=== PATIENT | female | born 1970 | race Caucasian/White ===

== ENCOUNTER → 2017-12-25 09:42 | Outpatient (CLI) | payer BC, SELFPAY ==
--- NOTE | 2017-12-25 | XR_ITS ---
XR foot wt bearing LT 2V HISTORY: Left foot pain ORDERING PHYSICIAN: Bridget Jimenez DPM PATIENT AGE: 47 years COMPARISON: None FINDINGS: Weightbearing views are performed. Mild hallux valgus with the first metatarsophalangeal angle of 21 degrees with hypertrophic change at the distal first metatarsal and mild osteoarthritic change of the first MTP joint and mild prominence of the soft tissues medial to the head of the first metatarsal. No other significant anomalies. 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
--- NOTE | 2017-12-25 | XR_ITS ---
XR foot wt bearing RT 2V HISTORY: Right foot pain ORDERING PHYSICIAN: Bridget Jimenez DPM PATIENT AGE: 47 years COMPARISON: None FINDINGS: Weightbearing views are performed. Mild hallux valgus first metatarsophalangeal joint with a first MTP angle of 21 degrees. On mild hypertrophy of the distal aspect of the first metatarsal. No other significant anomalies. IMPRESSION: Mild hallux valgus with mild bunion formation
== END ==
PROVIDERS: PCP Physician Assistant; Visit Provider Podiatrist
DX: M79.671 Pain in right foot (principal); M79.672 Pain in left foot
CPT/HCPCS: 73620

== ENCOUNTER → 2018-07-03 17:29 | Outpatient (CLI) | payer BC, SELFPAY | PROVIDERS: Visit Provider Nurse Practitioner Family | DX: Z79.899 Other long term (current) drug therapy (principal) ==

== ENCOUNTER → 2018-11-05 08:19 | Outpatient (POV) | payer BC, SELFPAY | PROVIDERS: Visit Provider Dermatology | DX: Z00.00 Encounter for general adult medical examination without abnormal findings (principal) ==

== ENCOUNTER → 2019-04-15 13:28 | Outpatient (POV) | payer BC, SELFPAY | PROVIDERS: Visit Provider Dermatology | DX: Z00.00 Encounter for general adult medical examination without abnormal findings (principal) ==

== ENCOUNTER → 2019-04-15 15:07 | Outpatient (CLI) | payer BC, SELFPAY | PROVIDERS: Visit Provider Physician Assistant | DX: N39.0 Urinary tract infection, site not specified (principal) | CPT/HCPCS: 87086; 87088; 87186 ==

== ENCOUNTER 2020-06-03 13:07 | Emergency (ER) | payer BC, SELFPAY ==
--- NOTE | 2020-06-03 13:18 | HMH.EDUTC ---
[facility] [place] Dis[place] Clinical Impression: Exposure to COVID-19 virus, Viral syndrome Disposition: Home, Self-Care Condition on Discharge: Good Instructions: DI for Viral Syndrome, Preventing the Spread of Coronavirus Discharge Instructions Additional Instructions: Follow the instuctions on the printed sheet that we gave you regarding preventing the spread of COVID-19. Take the medications as prescribed. Follow up with your regular doctor. GO TO THE ER FOR ANY WORSENING SYMPTOMS OR CONCERNS, ESPECIALLY ANY TROUBLE BREATHING Prescriptions: Ibuprofen [Ibuprofen 800mg Tablet] 800 mg PO Q8HP PRN #30 tab PRN Reason: Moderate Pain Transmission Status: Received by [facility] Ondansetron [Zofran 4mg ODT] 4 mg PO Q8HP PRN #20 tab.rapdis PRN Reason: Nausea Transmission Status: Received by [facility] Benzonatate [Tessalon Perle 100mg Cap] 100 mg PO TIDP PRN #30 cap PRN Reason: Cough Transmission Status: Received by [facility] Azithromycin [Z-Andrea 250mg Tab*] 250 mg PO UD DOSE PK #6 tab Transmission Status: Received by [facility] Referrals: Frida Angulo PA [Primary Care Provider] - Time of Disposition: 13:43 Medical Decision Making - Medical Records Medical records reviewed: No: I reviewed the patient's medical records. - [place] Inquiry Pt receiving controlled substance: No Vital Signs: 06/03/20 13:22 06/03/20 13:45 Temperature 98.9 F 98.9 F Temperature Source Oral Pulse Rate 132 H Pulse Rate [Right Brachial] 132 H Respiratory Rate 22 22 Blood Pressure 154/95 H Blood Pressure [Right Arm] 154/95 H Blood Pressure Mean [Right Arm] 114 Blood Pressure Source [Right Arm] Automatic Cuff Blood Pressure Position [Right Arm] Sitting 02 Sat by Pulse Oximetry 100 Oxygen Delivery Method Room Air Orders (Tests/Meds): ORDERS Category Date Time Status SARS-CoV-2, SHIVAM Stat Lab 06/03/20 13:32 Received [facility] [place] HPI - General Stated complaint: wants covid test Time Seen by Provider: 06/03/20 13:19 - History of Present Illness Provider Complaint: She states that her was diagnosed with COVID-19 about 2 weeks ago. She states that she has a mild cough and she has lost her sense of taste. - Related Data Home Medications Medication Instructions Recorded Confirmed Dextroamphetamine/Amphetamine 20 mg PO DAILY 06/03/20 06/03/20 [Adderall 20 mg Tablet] Levothyroxine Sodium 75 mcg PO DAILY 06/03/20 06/03/20 [Levothyroxine 75mcg (0.075mg) Tab] Previous Rx's Medication Instructions Recorded Azithromycin [Z-Andrea 250mg Tab*] 250 mg PO UD DOSE PK #6 tab 06/03/20 Benzonatate [Tessalon Perle 100mg 100 mg PO TIDP PRN #30 cap 06/03/20 Cap] Ibuprofen [Ibuprofen 800mg 800 mg PO Q8HP PRN #30 tab 06/03/20 Tablet] Ondansetron [Zofran 4mg ODT] 4 mg PO Q8HP PRN #20 tab.rapdis 06/03/20 Allergies Allergy/AdvReac Type Severity Reaction Status Date / Time No Known Allergies Allergy Verified 01/06/20 09:13 [facility] History - Hepatitis A Screen Attestation statement:: This patient has been screened for Hepatitis A risk factors. I have reviewed the patient's past medical history: Yes Medical History: Reports:: Anxiety Denies:: Aneurysm, Arrhythmia, Asthma, Atrial Fibrillation, Cancer, Chronic Obstructive Pulmonary Disease (COPD), Cerebrovascular Accident, Diabetes Mellitus Type 1, Diabetes Mellitus Type 2, Gastroesophageal Reflux Disease(GERD), Hiatal Hernia, Hyperlipidemia, Hypertension, Kidney Stones, Myocardial Infarction Other Medical History: Reports: Hypothyroidism, Thyroid Disease. Denies: Arthritis, Sinus Problems Comment: ADHD Other Surgeries: Yes: Colonoscopy, Hysterectomy-Total, Hysterectomy-Partial Amputation: No Fractures: No - Social History Smoking Status: Never smoker Alcohol Intake: never Alcohol Intake Frequency:: 0-2 drinks per day Substance Use Type: denies use Occupational Status: employed Housing:
[2020-06-03 13:22] VITALS: BP 154/95; PULSE 132; RESP 22; TEMP 37.2; O2SAT 100; BMI 25.8
[2020-06-03 13:45] VITALS: BP 154/95; PULSE 132; RESP 22; TEMP 37.2; O2SAT 100
[2020-06-04 13:47] LABS: Covid-19 Nasal PCR Sendout Lex POSITIVE
== END 2020-06-03 13:48 | disposition home or self-care (01) ==
PROVIDERS: Emergency Provider Nurse Practitioner Family; PCP Physician Assistant
DX: Z20.828 Contact with and (suspected) exposure to other viral communicable diseases (principal); B34.9 Viral infection, unspecified; E03.9 Hypothyroidism, unspecified; F41.9 Anxiety disorder, unspecified; F90.9 Attention-deficit hyperactivity disorder, unspecified type; Z79.899 Other long term (current) drug therapy
CPT/HCPCS: 99201; U0004

== ENCOUNTER 2020-06-17 13:51 | Emergency (ER) | payer BC, SELFPAY ==
--- NOTE | 2020-06-17 14:26 | HMH.EDUTC ---
[facility] [place] Clinical Impression: Exposure to COVID-19 virus, COVID-19 Disposition: Home, Self-Care Condition on Discharge: Good Instructions: Preventing the Spread of Coronavirus Discharge Instructions Additional Instructions: FOLLOW THE DIRECTIONS ON THE COVID-19 HAND OUT THAT WE GAVE YOU REGARDING SELF-ISOLATION UNTIL YOU KNOW YOUR COVID-19 RESULTS Referrals: Frida Angulo PA [Primary Care Provider] - Time of Disposition: 14:53 Medical Decision Making - Medical Records Medical records reviewed: No: I reviewed the patient's medical records. - [place] Inquiry Pt receiving controlled substance: No Vital Signs: 06/17/20 14:40 06/17/20 15:01 Temperature 98.2 F 98.5 F Temperature Source Oral Oral Pulse Rate 87 Pulse Rate [Right] 78 Respiratory Rate 16 16 Blood Pressure 124/70 Blood Pressure Source Automatic Cuff Blood Pressure Position Sitting 02 Sat by Pulse Oximetry 98 Oxygen Delivery Method Room Air Room Air Orders (Tests/Meds): ORDERS Category Date Time Status SARS-CoV-2, SHIVAM Stat Lab 06/17/20 14:45 Re[place] [facility] [place] - General Stated complaint: covid re test Time Seen by Provider: 06/17/20 14:26 - History of Present Illness Provider Complaint: She is here to have a covid test. She tested posive about 14 days ago. She denies any fever or chills or other symptoms. - Related Data Home Medications Medication Instructions Recorded Confirmed Dextroamphetamine/Amphetamine 20 mg PO DAILY 06/03/20 06/03/20 [Adderall 20 mg Tablet] Levothyroxine Sodium 75 mcg PO DAILY 06/03/20 06/03/20 [Levothyroxine 75mcg (0.075mg) Tab] Previous Rx's Medication Instructions Recorded Azithromycin [Z-Andrea 250mg Tab*] 250 mg PO UD DOSE PK #6 tab 06/03/20 Benzonatate [Tessalon Perle 100mg 100 mg PO TIDP PRN #30 cap 06/03/20 Cap] Ibuprofen [Ibuprofen 800mg 800 mg PO Q8HP PRN #30 tab 06/03/20 Tablet] Ondansetron [Zofran 4mg ODT] 4 mg PO Q8HP PRN #20 tab.rapdis 06/03/20 Allergies Allergy/AdvReac Type Severity Reaction Status Date / Time No Known Allergies Allergy Verified 06/17/20 14:38 [facility] History - Hepatitis A Screen Attestation statement:: This patient has been screened for Hepatitis A risk factors. I have reviewed the patient's past medical history: Yes Medical History: Reports:: Anxiety Denies:: Aneurysm, Arrhythmia, Asthma, Atrial Fibrillation, Cancer, Chronic Obstructive Pulmonary Disease (COPD), Cerebrovascular Accident, Diabetes Mellitus Type 1, Diabetes Mellitus Type 2, Gastroesophageal Reflux Disease(GERD), Hiatal Hernia, Hyperlipidemia, Hypertension, Kidney Stones, Myocardial Infarction Other Medical History: Reports: Hypothyroidism, Thyroid Disease. Denies: Arthritis, Sinus Problems Comment: ADHD Other Surgeries: Yes: Colonoscopy, Hysterectomy-Total, Hysterectomy-Partial Amputation: No Fractures: No - Social History Smoking Status: Never smoker Alcohol Intake: never Alcohol Intake Frequency:: 0-2 drinks per day Substance Use Type: denies use Occupational Status: other Housing: house Household Members: family, children, spouse - Psychiatric History Pschychiatric History:: Reports:: Anxiety, Attention Deficit Disorder Family Hx:: Cancer ROS Obtained: No All systems reviewed & no additional complaints - Constitutional Constitutional: Denies chills, Denies fever(s) - Eyes Eyes: Denies blurry vision - ENT Ears, Nose, Mouth, and Throat: Denies dizziness, Denies otalgia, Denies sore throat - Cardiovascular Cardiovascular: Denies chest pain - Respiratory Respiratory: No chest congestion, No cough, No dyspnea, No coughing up blood, No stridor, No wheezing Physical Exam - General General appearance: alert, in no apparent distress - Head Head exam: atraumatic, normocephalic, normal inspection - Eye Eye exam: Present: normal appearance, PERRL, EOMI - ENT ENT exam: Present: normal exam, normal oropharynx, mucous
[2020-06-17 14:38] VITALS: BMI 22.0
[2020-06-17 14:40] VITALS: PULSE 78; RESP 16; TEMP 36.8; O2SAT 98; BMI 21.2
[2020-06-17 15:01] VITALS: BP 124/70; PULSE 87; RESP 16; TEMP 36.9; O2SAT 98
[2020-06-19 14:25] LABS: Covid-19 Nasal PCR Sendout Lex Positive
== END 2020-06-17 15:02 | disposition home or self-care (01) ==
PROVIDERS: Emergency Provider Nurse Practitioner Family; PCP Physician Assistant
DX: U07.1 COVID-19 (principal); F41.9 Anxiety disorder, unspecified; E03.9 Hypothyroidism, unspecified; F90.9 Attention-deficit hyperactivity disorder, unspecified type; Z79.899 Other long term (current) drug therapy
CPT/HCPCS: 99201; U0004

== ENCOUNTER → 2020-06-25 11:40 | Outpatient (CLI) | payer BC, SELFPAY ==
--- NOTE | 2020-06-25 12:27 | XR_ITS ---
PROCEDURE: XR CHEST PORTABLE CLINICAL HISTORY: chest pain, cough, + COVID 7/ COMPARISON: No exams were available for comparison FINDINGS: No acute bony abnormalities. The cardiomediastinal silhouette and pulmonary vascularity are within normal limits. The lungs are clear without infiltrates, suspicious nodules, or pleural effusions. IMPRESSION: 1. No acute cardiopulmonary abnormality noted. Dictated by: Jackeline Walter 06/25/2020 15:46 Electronically signed by Jackeline Walter in [place] 06/25/2020 15:46
== END ==
LOC: RAD 11:43 → COVID.OUT 11:57 → RAD 12:02
PROVIDERS: PCP Physician Assistant; Visit Provider Physician Assistant
DX: U07.1 COVID-19 (principal); R05 Cough; R07.9 Chest pain, unspecified
CPT/HCPCS: 71045

== ENCOUNTER → 2020-07-02 14:34 | Outpatient (CLI) | payer BC, SELFPAY | PROVIDERS: PCP Physician Assistant; Visit Provider Physician Assistant | DX: Z20.828 Contact with and (suspected) exposure to other viral communicable diseases (principal); U07.1 COVID-19 | CPT/HCPCS: U0003 ==

== ENCOUNTER → 2020-07-16 15:31 | Outpatient (CLI) | payer BC, SELFPAY ==
[2020-07-18 08:58] LABS: Covid-19 Nasal PCR Sendout UK Not Detected
== END ==
PROVIDERS: PCP Physician Assistant; Visit Provider Physician Assistant
DX: Z03.818 Encounter for observation for suspected exposure to other biological agents ruled out (principal)
CPT/HCPCS: U0003

== ENCOUNTER → 2020-07-27 11:30 | Outpatient (CLI) | payer BC, SELFPAY ==
[2020-07-28 14:22] LABS: Covid-19 Nasal PCR Sendout Lex Not Detected
== END ==
PROVIDERS: PCP Physician Assistant; Visit Provider Physician Assistant
DX: Z03.818 Encounter for observation for suspected exposure to other biological agents ruled out (principal)
CPT/HCPCS: U0004

== ENCOUNTER → 2020-08-11 08:56 | Outpatient (CLI) | payer BC, SELFPAY ==
--- NOTE | 2020-08-11 09:04 | FL_ITS ---
PROCEDURE: FL BARIUM SWALLOW CLINICAL INDICATION: DIFFICULTY SWALLOWING COMPARISON: No exams were available for comparison TECHNIQUE: In the upright position the patient was observed to swallow barium in both the AP and lateral view. The cervical esophagus was examined under fluoroscopy with images obtained. The patient was then placed prone in the right anterior oblique position and was observed to swallow barium with Valsalva technique . FLUOROSCOPY TIME: 1 minutes and 12 seconds FINDINGS: No annular constricting lesions or mucosal abnormalities. There is minimal indentation upon the posterior aspect of the esophagus by osteophytes at C5, C6, and C7. There is a small sliding hiatal hernia. IMPRESSION: 1. Mild indentation upon the posterior aspect of the esophagus by osteophytes at C5-C6 and C7 2. Small sliding hiatal hernia Dictated by: Jayson Mayorga MD 08/12/2020 06:21 Jayson Mayorga MD in [place] 08/12/2020 06:21
== END ==
PROVIDERS: PCP Physician Assistant; Visit Provider Physician Assistant
DX: R13.10 Dysphagia, unspecified (principal); U07.1 COVID-19; B94.8 Sequelae of other specified infectious and parasitic diseases
CPT/HCPCS: 74220

== ENCOUNTER → 2020-09-09 11:44 | Outpatient (CLI) | payer BC, SELFPAY ==
[2020-09-09 14:45] LABS: Coronavirus 19 IgG Antibody Positive (Negative); Coronavirus 19 IgM Antibody Negative (Negative)
[2020-09-17 01:07] LABS: Aspergillus flavus Negative (Neg:<1:1); Aspergillus fumigatus Negative (Neg:<1:1); Aspergillus niger Negative (Neg:<1:1); Blastomyces Antibody Negative (Neg:<1:1)
== END ==
PROVIDERS: Visit Provider Internal Medicine Pulmonary Disease
DX: J84.10 Pulmonary fibrosis, unspecified (principal)
CPT/HCPCS: 36415; 86328; 86606; 86612; 86698

== ENCOUNTER → 2020-10-06 14:31 | Outpatient (CLI) | payer BC, SELFPAY ==
[2020-10-06 15:35] VITALS: PULSE 84; PULSE 88
== END ==
PROVIDERS: PCP Physician Assistant; Visit Provider Internal Medicine Pulmonary Disease
DX: R06.00 Dyspnea, unspecified (principal); U07.1 COVID-19
CPT/HCPCS: 94060; 94640; 94726; 94729

== ENCOUNTER → 2020-10-19 17:14 | Outpatient (CLI) | payer BC, SELFPAY ==
[2020-10-19 18:54] LABS: Alanine Aminotransferase 23 U/L (12-78); Albumin Level 4.2 g/dl (3.5-5.0); Albumin/Globulin Ratio 1.4 (1.1-1.8); Alkaline Phosphatase 73 U/L (38-126); Anion Gap 10.7 mEq/L (5-15); Aspartate Amino Transferase 26 U/L (14-36); Bilirubin,Total 0.5 mg/dl (0.2-1.3); Blood Urea Nitrogen 21 mg/dl (7-17); Calcium 9.8 mg/dl (8.4-10.2); Carbon Dioxide 29 mmol/L (22.0-30.0); Chloride 101 mmol/L (98-107); Chol/HDL Ratio 3.2 (1-3.5); Cholesterol 241 mg/dl (140-200); Estimated Glomerular Filt Rate 88 ml/min (>60); GFR (African American) 107 ML/MIN (>60); Globulin 3.1 g/dL (1.3-3.2); Glucose 104 mg/dl (74-100); HDL Cholesterol 76 mg/dl (40-60); Potassium 4.7 mmoL/L (3.5-5.1); Sodium 136 mmol/L (136-145); Total Protein,Serum 7.3 g/dl (6.3-8.2); Triglycerides 90 mg/dl (30-150); VLDL Cholesterol 18 mg/dL (0-40)
[2020-10-19 19:06] LABS: Direct LDL Cholesterol 127.85 mg/dL (100-129)
[2020-10-19 19:07] LABS: Basophils # 0.1 K/mm3 (0-0.2); Basophils % 0.9 % (0.1-2.0); Eosinophils # 0.1 K/mm3 (0.0-0.4); Eosinophils % 1.5 % (0.1-12.0); Hematocrit 46.1 % (37.0-47.0); Lymphocytes % 33.2 % (10-50); Mean Corpuscular HGB Conc 32.5 g/dL (31.8-35.4); Mean Corpuscular Hemoglobin 29.2 pg (27.0-31.2); Monocytes # 0.4 K/mm3 (0.1-1.0); Monocytes % 6.5 % (1.7-9.3); Neutrophils # 3.5 K/mm3 (1.8-7.8); Neutrophils % 57.8 % (37.0-80.0); Platelet Count 373 K/mm3 (142-424); Red Blood Count 5.12 M/mm3 (4.20-5.40); Red Cell Distribution Width 15.1 % (11.5-17.5); White Blood Count 6.1 K/mm3 (4.8-10.8)
[2020-10-19 19:12] LABS: 25-OH Vitamin D, Total 33.2 ng/mL (30-100); Free T4 (Free Thyroxine) 1.33 ng/dl (0.78-2.19)
[2020-10-19 19:25] LABS: Thyroid Stimulating Hormone 4.93 uIU/mL (0.465-4.68)
== END ==
PROVIDERS: Visit Provider Physician Assistant
DX: E03.9 Hypothyroidism, unspecified (principal); U07.1 COVID-19; B34.9 Viral infection, unspecified; F90.9 Attention-deficit hyperactivity disorder, unspecified type
CPT/HCPCS: 80053; 80061; 82306; 84439; 84443; 85025

== ENCOUNTER → 2020-11-25 11:08 | Outpatient (CLI) | payer BC, SELFPAY ==
[2020-11-26 11:31] LABS: Covid-19 Nasal PCR Sendout P&C NEGATIVE
== END ==
PROVIDERS: PCP Physician Assistant; Visit Provider Physician Assistant
DX: Z03.818 Encounter for observation for suspected exposure to other biological agents ruled out (principal)
CPT/HCPCS: U0004

== ENCOUNTER → 2021-01-18 08:15 | Outpatient (CLI) | payer BC, SELFPAY ==
--- NOTE | 2021-01-18 | CA_ITS ---
APPROVED REPORT Exam: Exercise Treadmill Technologist: Gaby Mcdonald Ht: 5 ft 8 in Wt: 166 lbs BSA: 1.89 m2 HR: 81 bpm BP: 125/65 mmHg Indications: Chest pain, Shortness of Breath Medical History Medications: Levothyroxine,,,,, Atorvastatin,,,,, Albuterol,,,,, Famotidine,,,,, Ibuprofen,,,,, Esomeprazole,,,,, Trazodone,,,,, CetIRIZINE,,,,, DexTROamphetamine-Amphetamine,,,,, Stress Test Details Test: Andrew HR Resting HR: 82 bpm Max Heart Rate (APMHR): 169 bpm Max HR Achieved: 176 bpm Target HR (85% APMHR): 143 bpm % of APMHR: 104 Recovery HR: 95 bpm BP Resting BP: 125.0/65.0 mmHg Max BP: 180.0/62.0 mmHg Recovery BP: 126.0/74.0 mmHg ECG Resting ECG: Normal sinus rhythm, premature junctional beat Clinical Exercise duration: 09:33 min Highest Stage Achieved: Exercise capacity: 10.1 METs Stress ECG Conclusion Patient exercised 9:33 on Andrew Protocol. Test stopped due to shortness of air, fatigue. Symptoms: Mild exaggeration of baseline chest discomfort. Arrhythmias/Ectopy: Rare PAC, [address]-T Changes: Normal ST response to exercise. Conclusion: Normal GXT. Rest and stress echo images reported separately. Test Summary REST . . . . . . . Sitting REST . . . . . . . Standing REST 22:31 0.0 0.0 82 . 125/ 65 . . Stage 1 01:00 10.0 1.7 106 . . . . Stage 1 02:00 10.0 1.7 107 . . . . Stage 1 03:00 10.0 1.7 112 . 150/ 60 . . Stage 2 01:00 12.0 2.5 126 . . . . Stage 2 02:00 12.0 2.5 129 . . . . Stage 2 03:00 12.0 2.5 130 . 172/ 64 . . Stage 3 01:00 14.0 3.4 142 . . . . Stage 3 02:00 14.0 3.4 151 . . . . Stage 3 03:00 14.0 3.4 158 . 180/ 62 . . Stage 4 00:33 16.0 0.0 174 . . . Stop exercise at 09:33 RECOVERY 01:00 0.0 0.0 144 . . . . RECOVERY 02:00 0.0 0.0 119 . . . . RECOVERY 03:00 0.0 0.0 103 . . . . RECOVERY 04:00 0.0 0.0 94 . . . . RECOVERY 05:00 0.0 0.0 94 . 161/ 74 . . RECOVERY 06:00 0.0 0.0 94 . 161/ 74 . . RECOVERY 07:00 0.0 0.0 92 . 126/ 74 . . RECOVERY 07:15 0.0 0.0 100 . 126/ 74 . . Electronically signed by : Husam García, 01/18/2021 21:08:50
--- NOTE | 2021-01-18 08:27 | CA_ITS ---
APPROVED REPORT EXAM: Comprehensive 2D, Doppler, and color-flow Echocardiogram Campus Monitor: Irene Christopher RVT Ht: 5 ft 8 in Wt: 166lbs BSA: 1.89 BP: 130/77 mmHg Indications: CP,S/P COVID,ABN EKG,RAMEY,HTN TDS-PT HAS BREAST IMPLANTS Conclusion 1. Patient exercised on Andrew protocol achieved 10.1 mets of workload on treadmill, the blood pressure response to exercise was adequate, there was no exercise-induced chest discomfort, EKG was negative for ischemia with exercise. 2. Normal left ventricular size and function at rest, with exercise there is increase in contractility of all the segments of the myocardium with hyperdynamic left ventricular systolic response, no obvious wall motion abnormality to suggest underlying ischemic heart disease. 3. Normal exercise stress echo. Electronically signed by : Husam García, 01/18/2021 21:09:58
--- NOTE | 2021-01-18 08:27 | CA_ITS ---
APPROVED REPORT EXAM: Comprehensive 2D, Doppler, and color-flow Echocardiogram Histologic Aide: Antonieta RCS, RVS Ht: 5 ft 8 in Wt: 166lbs BSA: 1.89 BP: 130/77 mmHg Indications: CP s/p COVID-19, abn ekg Echo Enhancing Agent Comments: Limited apical images due to breast implants 2D Dimensions Aortic Root 2.87 cm LA Volume 51.10 mL Left Atrium 3.46 cm LA Volume Index 26.50 mL/m2 (M/F) 16-34 LVOT 1.95 cm (M/F) 1.5-2.5 M-Mode Dimensions RVDd 2.68 cm (0.9-2.6) LA Diam 3.77 cm (1.9-4.0) LVDd 4.84 cm (3.5-5.7) Ao Diam 3.09 cm (2.0-3.7) LVDs 3.16 cm (3.5-5.7) IVSd 0.84 cm (0.6-1.1) PWd 0.84 cm (0.6-1.1) EF (Teich) 63.80% EPSs 0.30 cm FS 34.70% EDV (Teich) 109.60 mL TAPSE 1.98 (<1.7) ESV (Teich) 39.70 mL LV Diastology E Decel Time 277.00 (160-240 msec) E/A Ratio 1.56 MED E' 8.10 (< 7 cm/sec) MED A' 11.80 cm/s E'/MED E' Ratio 9.32 (>14) LAT E' 11.80 (<10 cm/sec) LAT A' 8.80 cm/s E/LAT E' Ratio 6.40 (>14) Aortic Valve AO Peak GR. 3.80 mmHg Mitral Valve MV A Velocity 48.00 (40-130 cm/s) E/A Ratio 1.56 MV Decel. Time 277.00 (160-240 ms) Pulmonary Valve PV Peak Velocity 62.00 (50-150 cm/s) Tricuspid Valve TR P. Velocity 226.00 cm/s RAP Estimate 10.00 mmHg RVSP 30.40 mmHg Left Ventricle Left atrium is normal size, left ventricle is normal size, there is no concentric left ventricular hypertrophy, visually estimated ejection fraction 55% with no regional wall motion abnormality, diastolic parameters are within normal range. Right Ventricle Right atrium and right ventricle are normal size and contractility. Aortic Valve Aortic valve is grossly normal, there is no aortic stenosis or aortic insufficiency. Mitral Valve Mitral valve is grossly normal, there is trace mitral regurgitation. Tricuspid Valve Tricuspid valve is grossly normal, there is trace tricuspid regurgitation, tricuspid regurgitation jet velocity is inadequate for calculation of the right ventricular systolic pressure. Pulmonic Valve Pulmonic valve is poorly visualized. Great Vessels Aortic root is normal size. Pericardium No significant pericardial effusion noted. Conclusion 1. Normal left ventricular size, preserved left ventricular systolic function, visually estimated ejection fraction 55% with no regional wall motion abnormality, diastolic parameters are within normal range. 2. Trace mitral and tricuspid regurgitation. 3. No significant pericardial effusion noted. Electronically signed by : Husam García, 01/18/2021 20:57:44
== END ==
PROVIDERS: PCP Physician Assistant; Visit Provider Physician Assistant
DX: R07.9 Chest pain, unspecified (principal); R06.00 Dyspnea, unspecified; R94.31 Abnormal electrocardiogram [ECG] [EKG]; R00.2 Palpitations; E78.5 Hyperlipidemia, unspecified; M79.10 Myalgia, unspecified site; U07.1 COVID-19
CPT/HCPCS: 93017; 93306; 93350

== ENCOUNTER → 2021-01-19 10:34 | Outpatient (CLI) | payer BC, SELFPAY ==
--- NOTE | 2021-01-19 10:34 | CT_ITS ---
PROCEDURE: CT CHEST WO CON CLINICAL INDICATION: cp.dyspnea Hx of COVID May-July 2020 Having chest pain in center of chest soa No prior COMPARISON: No exams were available for comparison TECHNIQUE: Axial images obtained with sagittal and coronal reformats. All CT scans at the facility use one or more dose reduction, viz: automated exposure control, ma/kV adjustment per patient size (including targeted exams where dose is matched to indication, i.e. head), or iterative reconstruction technique. FINDINGS: HEART AND MEDIASTINAL STRUCTURES: There is minimal pericardial thickening inferiorly nonspecific. No mediastinal or hilar mass or adenopathy. LUNGS AND PLEURAL SPACES: Mild biapical scarring. There is a calcified granuloma in the left lower lobe. No lobar consolidation or collapse. No effusions or infiltrates BONY STRUCTURES: No acute bony abnormalities apparent. UPPER ABDOMEN: Unremarkable. ADDITIONAL FINDINGS: Bilateral subpectoral breast implants are present. There is some mild nodularity involving the right breast inferiorly. Consider mammogram and ultrasound for further evaluation. IMPRESSION: 1. No acute finding. 2. Nodularity involves the inferior aspect of the right breast centrally. Consider ultrasound and mammogram for further evaluation. Bilateral breast implants are in place Dictated by: Jayson Mayorga MD 01/20/2021 11:11 Jayson Mayorga MD in [facility] 01/20/2021 11:11
== END ==
PROVIDERS: PCP Physician Assistant; Visit Provider Physician Assistant
DX: R06.00 Dyspnea, unspecified (principal); R07.9 Chest pain, unspecified; R00.2 Palpitations; R94.31 Abnormal electrocardiogram [ECG] [EKG]; E78.5 Hyperlipidemia, unspecified; U07.1 COVID-19
CPT/HCPCS: 71250

== ENCOUNTER → 2021-07-12 09:59 | Outpatient (POV) | payer BC, SELFPAY | PROVIDERS: Visit Provider Nurse Practitioner Family | DX: Z00.00 Encounter for general adult medical examination without abnormal findings (principal) ==

== ENCOUNTER → 2021-11-28 14:34 | Outpatient (CLI) | payer BC, SELFPAY | PROVIDERS: PCP Physician Assistant; Visit Provider Nurse Practitioner | DX: Z20.822 Contact with and (suspected) exposure to COVID-19 (principal) | CPT/HCPCS: C9803; U0003; U0005 ==

== ENCOUNTER → 2021-12-05 08:36 | Outpatient (CLI) | payer BC, SELFPAY | PROVIDERS: PCP Physician Assistant; Visit Provider Nurse Practitioner | DX: Z20.822 Contact with and (suspected) exposure to COVID-19 (principal) | CPT/HCPCS: C9803; U0003; U0005 ==

== ENCOUNTER → 2021-12-20 17:07 | Outpatient (CLI) | payer BC, SELFPAY | PROVIDERS: PCP Physician Assistant; Visit Provider Nurse Practitioner | DX: U07.1 COVID-19 (principal) | CPT/HCPCS: C9803; U0003; U0005 ==

== ENCOUNTER → 2022-03-15 10:15 | Outpatient (CLI) | payer BC, SELFPAY ==
[2022-03-15 14:21] LABS: Basophils # 0.1 K/mm3 (0-0.2); Basophils % 1.7 % (0.1-2.0); Eosinophils # 0.1 K/mm3 (0.0-0.4); Eosinophils % 0.9 % (0.1-12.0); Hematocrit 44.4 % (37.0-47.0); Hemoglobin 14.4 g/dL (12.2-16.2); Lymphocytes # 1.5 K/mm3 (0.7-4.5); Lymphocytes % 27.7 % (10-50); Mean Corpuscular HGB Conc 32.3 g/dL (31.8-35.4); Mean Corpuscular Hemoglobin 28.7 pg (27.0-31.2); Mean Corpuscular Volume 88.7 fl (81-99); Mean Platelet Volume 9.7 fl (7.4-10.4); Monocytes # 0.3 K/mm3 (0.1-1.0); Monocytes % 5.7 % (1.7-9.3); Neutrophils # 3.4 K/mm3 (1.8-7.8); Neutrophils % 64.1 % (37.0-80.0); Platelet Count 369 K/mm3 (142-424); Red Blood Count 5.01 M/mm3 (4.20-5.40); Red Cell Distribution Width 14.4 % (11.5-17.5); White Blood Count 5.3 K/mm3 (4.8-10.8)
[2022-03-15 14:41] LABS: Alanine Aminotransferase 23 U/L (12-78); Albumin Level 4.3 g/dl (3.5-5.0); Albumin/Globulin Ratio 1.6 (1.1-1.8); Alkaline Phosphatase 69 U/L (38-126); Anion Gap 11.4 mEq/L (5-15); Aspartate Amino Transferase 26 U/L (14-36); Bilirubin,Total 0.3 mg/dl (0.2-1.3); Blood Urea Nitrogen 13 mg/dl (7-17); Calcium 10.5 mg/dl (8.4-10.2); Carbon Dioxide 28 mmol/L (22.0-30.0); Chloride 101 mmol/L (98-107); Chol/HDL Ratio 3.5 (1-3.5); Cholesterol 234 mg/dl (140-200); Estimated Glomerular Filt Rate 105 ml/min (>60); GFR (African American) 127 ML/MIN (>60); Globulin 2.7 g/dL (1.3-3.2); Glucose 88 mg/dl (74-100); HDL Cholesterol 67 mg/dl (40-60); Potassium 4.4 mmoL/L (3.5-5.1); Sodium 136 mmol/L (136-145); Triglycerides 99 mg/dl (30-150); VLDL Cholesterol 20 mg/dL (0-40)
[2022-03-15 14:53] LABS: Direct LDL Cholesterol 118.87 mg/dL (100-129)
[2022-03-15 14:57] LABS: 25-OH Vitamin D, Total 32.2 ng/mL (30-100)
[2022-03-15 15:12] LABS: Thyroid Stimulating Hormone 3.42 uIU/mL (0.465-4.68)
[2022-03-15 15:30] LABS: Vitamin B12 697 pg/mL (239-931)
== END ==
PROVIDERS: PCP Emergency Medicine; Visit Provider Physician Assistant
DX: E03.9 Hypothyroidism, unspecified (principal)
CPT/HCPCS: 80053; 80061; 82306; 82330; 82607; 83970; 84443; 85025

== ENCOUNTER → 2022-05-24 15:47 | Outpatient (CLI) | payer BC, SELFPAY ==
[2022-05-25 18:31] LABS: Calcium, Ionized 5.7 mg/dL (4.5-5.6)
== END ==
PROVIDERS: Visit Provider Physician Assistant
DX: E83.52 Hypercalcemia (principal)
CPT/HCPCS: 82330

== ENCOUNTER → 2022-11-01 13:58 | Outpatient (CLI) | payer BC, SELFPAY ==
[2022-11-01 15:05] LABS: Amphetamine/Metha Screen,Urine Positive ng/ml (<1000); Barbiturates Screen,Urine Negative ng/ml (<200)
[2022-11-01 15:06] LABS: Benzodiazepines Screen,Urine Negative ng/ml (<200)
[2022-11-01 15:07] LABS: Cannabinoid Screen,Urine Negative ng/ml (<50); Cocaine Screen,Urine Negative ng/ml (<300)
[2022-11-01 15:08] LABS: Methadone Screen,Urine Negative ng/ml (<300)
[2022-11-01 15:09] LABS: Opiate Screen,Urine Negative ng/ml (<300); Phencyclidine Screen,Urine Negative ng/ml (<25)
== END ==
PROVIDERS: PCP Emergency Medicine; Visit Provider Emergency Medicine
DX: Z79.899 Other long term (current) drug therapy (principal)
CPT/HCPCS: 80305

== ENCOUNTER → 2023-05-04 09:11 | Outpatient (CLI) | payer BC, SELFPAY ==
[2023-05-04 10:18] LABS: Basophils % 0.5 % (0.1-2.0); Eosinophils # 0.2 K/mm3 (0.0-0.4); Eosinophils % 3.2 % (0.1-12.0); Hematocrit 44.2 % (37.0-47.0); Hemoglobin 14.2 g/dL (12.2-16.2); Lymphocytes # 1.6 K/mm3 (0.7-4.5); Lymphocytes % 29.7 % (10-50); Mean Corpuscular HGB Conc 32.1 g/dL (31.8-35.4); Mean Corpuscular Hemoglobin 27.7 pg (27.0-31.2); Mean Corpuscular Volume 86.3 fl (81-99); Mean Platelet Volume 8.3 fl (7.4-10.4); Monocytes # 0.3 K/mm3 (0.1-1.0); Monocytes % 6.2 % (1.7-9.3); Neutrophils # 3.3 K/mm3 (1.8-7.8); Neutrophils % 60.4 % (37.0-80.0); Platelet Count 359 K/mm3 (142-424); Red Blood Count 5.11 M/mm3 (4.20-5.40); Red Cell Distribution Width 14.3 % (11.5-17.5); White Blood Count 5.5 K/mm3 (4.8-10.8)
[2023-05-04 10:33] LABS: Cholesterol 243 mg/dl (140-200); HDL Cholesterol 80 mg/dl (40-60); Triglycerides 105 mg/dl (30-150); VLDL Cholesterol 21 mg/dL (0-40)
[2023-05-04 10:34] LABS: Alanine Aminotransferase 23 U/L (12-78); Albumin Level 3.9 g/dl (3.5-5.0); Albumin/Globulin Ratio 1.3 (1.1-1.8); Alkaline Phosphatase 61 U/L (38-126); Anion Gap 12.6 mEq/L (5-15); Aspartate Amino Transferase 29 U/L (14-36); Bilirubin,Total 0.4 mg/dl (0.2-1.3); Blood Urea Nitrogen 17 mg/dl (7-17); Carbon Dioxide 28 mmol/L (22.0-30.0); Chloride 102 mmol/L (98-107); Estimated Glomerular Filt Rate 105 ml/min (>60); GFR (African American) 127 ML/MIN (>60); Globulin 2.9 g/dL (1.3-3.2); Glucose 91 mg/dl (74-100); Potassium 4.6 mmoL/L (3.5-5.1); Sodium 138 mmol/L (136-145); Total Protein,Serum 6.8 g/dl (6.3-8.2)
[2023-05-04 10:51] LABS: Triiodothryronine (T3) Uptake 31 % (23.5-40.5)
[2023-05-04 10:55] LABS: Direct LDL Cholesterol 119.79 mg/dL (100-129)
[2023-05-04 11:05] LABS: Thyroid Stimulating Hormone 5.33 uIU/mL (0.465-4.68)
[2023-05-05 12:28] LABS: Estradiol 43.6 pg/mL (.); FSH 40.9 mIU/mL (.)
[2023-05-11 16:13] LABS: Free Testosterone (Direct) 0.3 pg/mL (0.0-4.2); Testosterone, Total, LC/MS 19.8 ng/dL (.)
== END ==
PROVIDERS: PCP Emergency Medicine; Visit Provider Obstetrics & Gynecology
DX: E03.9 Hypothyroidism, unspecified (principal); E55.9 Vitamin D deficiency, unspecified
CPT/HCPCS: 36415; 80053; 80061; 82306; 82670; 83001; 84439; 84443; 84479; 85025

== ENCOUNTER → 2023-08-06 09:03 | Outpatient (CLI) | payer BC, SELFPAY ==
[2023-08-07 12:49] LABS: FSH 14.2 mIU/mL (.)
[2023-08-14 13:10] LABS: Free Testosterone (Direct) 0.3 pg/mL (0.0-4.2); Testosterone, Total, LC/MS 32.9 ng/dL (.)
== END ==
PROVIDERS: PCP Emergency Medicine; Visit Provider Obstetrics & Gynecology
DX: N95.1 Menopausal and female climacteric states (principal); Z79.890 Hormone replacement therapy
CPT/HCPCS: 36415; 82670; 83001

== ENCOUNTER 2024-02-13 18:32 | Outpatient (CLI) | payer BC, SELFPAY ==
[2024-02-13 19:46] LABS: Amphetamine/Metha Screen,Urine Positive ng/ml (<1000)
[2024-02-13 19:47] LABS: Benzodiazepines Screen,Urine Negative ng/ml (<200)
[2024-02-13 19:48] LABS: Barbiturates Screen,Urine Negative ng/ml (<200); Cannabinoid Screen,Urine Negative ng/ml (<50)
[2024-02-13 19:49] LABS: Cocaine Screen,Urine Negative ng/ml (<300)
[2024-02-13 19:50] LABS: Methadone Screen,Urine Negative ng/ml (<300)
[2024-02-13 19:52] LABS: Opiate Screen,Urine Negative ng/ml (<300)
[2024-02-13 19:53] LABS: Phencyclidine Screen,Urine Negative ng/ml (<25)
== END 2024-02-13 23:59 ==
LOC: LAB.DROPOF 18:33
PROVIDERS: PCP Nurse Practitioner Acute Care; Visit Provider Nurse Practitioner Acute Care
DX: Z79.899 Other long term (current) drug therapy (principal)
CPT/HCPCS: 80307

== ENCOUNTER 2024-07-02 13:35 | Emergency (ER) | payer BC, SELFPAY ==
[2024-07-02 13:37] VITALS: BP 133/107; PULSE 122; RESP 16; TEMP 36.6; O2SAT 96; BMI 28.0
--- NOTE | 2024-07-02 14:10 | ED_ITS ---
<Statement entered by Monse Riley DO - 07/02/24 15:15> I was consulted by the OLIVE, and we discussed the complexity of the problems being addressed. I approved the treatment and management plan for this patient's care in the emergency department, thus performing a substantive portion of the medical decision making. Monse Riley DO Discharge Plan Disposition Patient Disposition: Home, Self-Care Condition: Good Prescriptions Prescriptions: New cephalexin 500 mg capsule 500 mg PO BID 7 Days Qty: 14 0RF No Action ibuprofen 800 mg tablet 800 mg PO Q8H PRN (Reason: pain) Qty: 90 2RF desvenlafaxine succinate [Pristiq] 50 mg tablet extended release 24 hr 50 mg PO DAILY Qty: 30 2RF quetiapine [Seroquel] 50 mg tablet 50 mg PO DAILY Qty: 30 2RF dextroamphetamine-amphetamine [Adderall] 30 mg tablet 30 mg PO BID Qty: 60 0RF atorvastatin 40 mg tablet 40 mg PO DAILY Qty: 90 0RF levothyroxine 125 mcg capsule 125 mcg PO DAILY Qty: 90 0RF Referrals Follow up/Referrals: Frida Angulo PA [Primary Care Provider] - See instructions Activity Restrictions/Add. Instructions Additional Instructions/Restrictions: Please keep wound clean dry and covered with a nonocclusive dressing. You may wash with soap and water as normal. The sutures need to stay in for 10 days to 2 weeks. May return to the [facility] PCP or ER for suture removal. Return to the ER for any worsening signs or symptoms including increasing pain redness drainage as needed Clinical Impressions Clinical Impression: Laceration Instructions Patient Instructions: DI for Laceration Repair Print Language Print Language: Thai Discharge ED Provider: Monse Riley General Adult HPI General Chief complaint: Wound/Laceration Stated complaint: AO-laceration to L index finger Time Seen by Provider: 07/02/24 13:45 Mode of Arrival: Ambulatory Source of Information: Patient Limitations: No Limitations Description of Symptoms (Recalled from ER Triage Doc. by RN): Patient with laceration to left index finger. States that she cut it on a pair of hedge trimmers. History of Present Illness HPI narrative: Patient presents for evaluation of a left index finger injury. Patient was using hedge tremors and accidentally reconnected the power while she was holding the blade causing a laceration to her left index finger. Patient has full range of motion and is neurovascular intact distally. Related Data Previous Rx's ?Medication ?Instructions ?Recorded atorvastatin 40 mg tablet 40 mg PO DAILY #90 tabs 05/15/23 levothyroxine 125 mcg capsule 125 mcg PO DAILY #90 caps 05/15/23 ibuprofen 800 mg tablet 800 mg PO Q8H PRN pain #90 tabs 11/28/23 desvenlafaxine succinate 50 mg 50 mg PO DAILY #30 tabs 06/16/24 tablet,extended release 24 hr (Pristiq) dextroamphetamine-amphetamine 30 30 mg PO BID #60 tabs 06/16/24 mg tablet (Adderall) quetiapine 50 mg tablet (Seroquel) 50 mg PO DAILY #30 tabs 06/16/24 cephalexin 500 mg capsule 500 mg PO BID 7 days #14 caps 07/02/24 Allergies Allergy/AdvReac Type Severity Reaction Status Date / Time No Known Allergies Allergy Verified 06/16/24 14:00 [facility] Disclaimer: The information contained in this section may have been updated after the patient was seen, as this information can be updated by other users. Medical History Anxiety GERD (gastroesophageal reflux disease) TMJ (temporomandibular joint disorder) Postmenopausal HRT (hormone replacement therapy) Insomnia Bilateral bunions Hypothyroidism ADHD (attention deficit hyperactivity disorder) Surgical History Hx of breast augmentation Family History Family/Other No significant family history Social History Smoking Status: Unknown if ever smoked alcohol intake: never counseling provided: none substance use type: denies use current occupational status: other Travel in the last 8 weeks: None household members: spouse, family and children housing: house ROS Obtained: Yes Systems reviewed as appropriate & no additional complaints except as documented Physical Exam General General appearance: alert and in no apparent distress Respiratory Respiratory exam: Present normal lung sounds bilaterally Cardiovascular Cardiovascular exam: Present regular rate and normal rhythm Expanded Upper Extremity Exam Left: Hand L/R front image: 2 1. laceration Neurological Exam Neurological exam: Present alert and oriented X3 Medical Decision Making [place] Inquiry Pt receiving controlled substance: No Vital Signs: 07/02/24 13:37 07/02/24 14:56 Temperature 97.8 F Temperature Source Oral Pulse Rate 106 H Pulse Rate [Radial] 122 H Respiratory Rate 16 Blood Pressure 136/96 H Blood Pressure [Right Arm] 133/107 H Blood Pressure Mean [Right Arm] 115 Blood Pressure Source [Right Arm] Automatic Cuff Blood Pressure Position [Right Arm] Sitting 02 Sat by Pulse Oximetry 96 95 Oxygen Delivery Method Room Air Room Air Orders (Tests/Meds): ED MEDICATIONS Discontinued Medications Generic Name Dose Route Start Last Admin Trade Name Freq PRN Reason Stop Dose Admin Cephalexin HCl 500 mg 07/02/24 14:16 07/02/24 14:33 Cephalexin 500mg Capsule PO 07/02/24 14:17 500 mg ONCE ONE Administration Lidocaine HCl 5 ml 07/02/24 14:16 Lidocaine 1% 10ml Mdv SQ 07/02/24 14:17 ONCE ONE Tetanus/Reduced Diphtheria/Acell Pertussis 0.5 ml 07/02/24 14:16 07/02/24 14:34 Tet/Diphth/Pert-Adult 0.5ml Syringe IM 07/02/24 14:17 0.5 ml .ONCE ONE Administration ORDERS Category Date Time Status Finger XR left minimum 2 views [XR finger LT min 2V] Exams 07/02/24 14:16 Taken Stat Medical Decision Narrative: In summary patient is a 84-year-old female who presents to the emergency department for evaluation of left finger laceration. Patient is initially normotensive tachycardic on arrival with a blood pressure 133/107 heart rate 122 upon arrival, afebrile. Physical exam is remarkable for 4 cm laceration at the lateral aspect of her left index finger. Square-shaped but does not cross the DIP joint. Differential diagnosis includes tendon injury versus joint intrusion versus simple laceration etc. Initial workup will be conducted with plain film x-rays.. Initial interventions include Tdap Keflex. Initial workup reviewed by me and my informal interpretation of her plain film x-ray shows no acute fracture. Upon repeat evaluation the patient is still normotensive and her heart rate has come down to 98 directly visualized on the bedside monitor by myself. Given this finger repaired primarily with eight 4.0 nylon sutures in interrupted fashion. Patient is appropriate for discharge with a prescription sent to her pharmacy for Keflex with first dose given here and her tetanus was updated prior to discharge. Procedures Laceration Laceration 1: Site: other (Left index finger) Side (If applicable): left Size (cm): 4 Description: contaminated and other (Semilunar flap parallel to the finger) Depth: simple, single layer, involves subcutaneous layer, involves muscle layer and involves tendon Local Anesthetic: lidocaine 1% Amount of anesthesia used (mL): 8 Pre-repair: wound explored, irrigated extensively and deep structures intact Skin layer closed with: nylon Size (cm): 4-0 Number of sutures: 8 Technique: simple, interrupted Critical Care Critical Care Time Critical Care Time: No
--- NOTE | 2024-07-02 14:16 | XR_ITS ---
FINAL REPORT CLINICAL HISTORY: Cut with a hedge tremor COMPARISON: None FINDINGS: LEFT SECOND FINGER: 3 images of the left second finger were obtained. There is a small calcification adjacent to the medial aspect of the distal interphalangeal joint that may represent a small chip fracture of uncertain age. No radiopaque foreign body is identified. The joint spaces are intact. There is soft tissue irregularity of the tip of the second digit. IMPRESSION: Small calcification adjacent to the medial aspect of the DIP joint, likely a small chip fracture of uncertain age. No radiopaque foreign body seen. Soft tissue irregularity tip of the second digit. Reviewed, Interpreted and Dictated by Nick Davis III, MD Transcribed by Anamaria Montero Authenticated and [facility]
--- NOTE | 2024-07-02 14:28 | PC.NURSE ---
don at bs for lac repair
[2024-07-02] MEDS: cephALEXin 500MG CAPSULE 500 MG PO (14:33)
[2024-07-02] MEDS: TET/DIPHTH/PERT-ADULT 0.5ML SYRINGE 0.5 ML IM (14:34)
[2024-07-02 14:56] VITALS: BP 136/96; PULSE 106; O2SAT 95
[2024-07-02] MEDS: LIDOCAINE 1% 10ML MDV 5 ML SQ (15:22)
[2024-07-02 15:23] VITALS: BP 144/102; PULSE 107; RESP 16; TEMP 36.7; O2SAT 96
== END 2024-07-02 15:24 | disposition home or self-care (01) ==
PROVIDERS: Emergency Provider Emergency Medicine; PCP Physician Assistant
DX: S61.211A Laceration without foreign body of left index finger without damage to nail, initial encounter (principal); W29.3XXA Contact with powered garden and outdoor hand tools and machinery, initial encounter; Z23 Encounter for immunization
CPT/HCPCS: 12032; 73140; 90471; 90715; 99283

== ENCOUNTER 2024-08-25 16:18 | Outpatient (CLI) | payer BC, SELFPAY ==
[2024-08-25 17:17] LABS: Basophils # 0.1 K/mm3 (0-0.2); Basophils % 0.6 % (0.1-2.0); Eosinophils # 0.1 K/mm3 (0.0-0.4); Eosinophils % 1.5 % (0.1-12.0); Hematocrit 40.1 % (37.0-47.0); Lymphocytes # 1.8 K/mm3 (0.7-4.5); Lymphocytes % 20.4 % (10-50); Mean Corpuscular HGB Conc 32.5 g/dL (31.8-35.4); Mean Corpuscular Hemoglobin 29.2 pg (27.0-31.2); Mean Corpuscular Volume 90.1 fl (81-99); Mean Platelet Volume 8.4 fl (7.4-10.4); Monocytes # 0.6 K/mm3 (0.1-1.0); Monocytes % 6.1 % (1.7-9.3); Neutrophils # 6.4 K/mm3 (1.8-7.8); Neutrophils % 71.4 % (37.0-80.0); Platelet Count 393 K/mm3 (142-424); Red Blood Count 4.45 M/mm3 (4.20-5.40); Red Cell Distribution Width 13.9 % (11.5-17.5)
[2024-08-25 17:27] LABS: Hemoglobin A1C 5.5 % (4.0-6.0)
[2024-08-25 17:39] LABS: Erythrocyte Sedimentation Rate 18 mm/hr (0-30)
[2024-08-25 18:24] LABS: 25-OH Vitamin D, Total 32.4 ng/mL (30-100); Free Thyroxine Index 2.4 ug/dL (5.93-13.13); T4 (Thyroxine) 7.4 ug/dl (5.53-11.0); Triiodothryronine (T3) Uptake 32 % (23.5-40.5)
[2024-08-25 18:29] LABS: Alanine Aminotransferase 26 U/L (12-78); Albumin Level 3.9 g/dl (3.5-5.0); Albumin/Globulin Ratio 1.4 (1.1-1.8); Alkaline Phosphatase 52 U/L (38-126); Anion Gap 5.2 mEq/L (5-15); Aspartate Amino Transferase 31 U/L (14-36); Bilirubin,Total 0.3 mg/dl (0.2-1.3); Blood Urea Nitrogen 24 mg/dl (7-17); Calcium 9.2 mg/dl (8.4-10.2); Carbon Dioxide 28 mmol/L (22.0-30.0); Chloride 104 mmol/L (98-107); Estimated Glomerular Filt Rate 74 ml/min (>60); GFR (African American) 90 ML/MIN (>60); Globulin 2.7 g/dL (1.3-3.2); Glucose 95 mg/dl (74-100); Potassium 4.2 mmoL/L (3.5-5.1); Sodium 133 mmol/L (136-145); Total Protein,Serum 6.6 g/dl (6.3-8.2)
[2024-08-25 18:38] LABS: Thyroid Stimulating Hormone 5.64 uIU/mL (0.465-4.68)
[2024-08-25 18:42] LABS: C-Reactive Protein 4.1 mg/L (0-4)
[2024-08-26 12:40] LABS: RA Latex Turbid. <10.0 IU/mL (<14.0)
[2024-08-26 13:16] LABS: Anti-Cyclic Citrullinated Pept 8 units (0-19)
[2024-08-26 14:41] LABS: Anti-Centromere B Antibodies <0.2 AI (0.0-0.9); Anti-DNA (DS) Ab Qn 1 IU/mL (0-9); Anti-Jo-1 <0.2 AI (0.0-0.9); Anti-Smith Antibody <0.2 AI (0.0-0.9); Antichromatin Antibodies <0.2 AI (0.0-0.9); Antiscleroderma-70 Antibodies <0.2 AI (0.0-0.9); RNP Antibodies <0.2 AI (0.0-0.9); Sjogren's Anti-SS-A <0.2 AI (0.0-0.9); Sjogren's Anti-SS-B 0.2 AI (0.0-0.9)
[2024-08-27 01:08] LABS: Lupus Reflex Interpretation Comment: (.); PTT-LA 33.7 sec (0.0-43.5); dRVVT 37.8 sec (0.0-47.0)
[2024-08-27 13:27] LABS: Anti-DNA (DS) Ab Qn 1 IU/mL (0-9)
== END 2024-08-25 23:59 | disposition home or self-care (01) ==
LOC: LAB 16:19
PROVIDERS: PCP Family Medicine; Visit Provider Family Medicine
DX: M21.90 Unspecified acquired deformity of unspecified limb (principal); M25.50 Pain in unspecified joint; M79.10 Myalgia, unspecified site; E03.9 Hypothyroidism, unspecified; Z00.00 Encounter for general adult medical examination without abnormal findings
CPT/HCPCS: 36415; 80050; 80053; 82306; 83036; 84436; 84443; 84479; 85025; 85613; 85651; 86140; 86200; 86225; 86235; 86431

== ENCOUNTER 2024-10-10 07:59 | Outpatient (CLI) | payer BC, SELFPAY ==
--- NOTE | 2024-10-10 08:00 | FL_ITS ---
FINAL REPORT CLINICAL HISTORY: trouble swallowing, heart burn, x 1 1/2 yrs but worse in the last month FINDINGS: BARIUM SWALLOW HISTORY: Dysphagia, GERD. TECHNIQUE: The patient ingested barium contrast. Spot and overhead films were performed. A total of 47 images were saved. FINDINGS: There is very mild esophageal dysmotility. There is a moderate sliding type hiatal hernia identified. There is gastroesophageal reflux to the distal esophagus. No changes of esophagitis are evident. 13 mm barium tablet passes easily through the esoophagus and into the stomach. FLUOROSCOPY TIME: 1 minute 17 seconds Radiation exposure in Reference air Kerma: 84.86 mGy IMPRESSION: Moderate sliding-type hiatal hernia with gastroesophageal reflux. Very mild esophageal dysmotility Reviewed, Interpreted and Dictated by Nick Davis III, MD Transcribed by Suzie Farmer PA-C Authenticated and [facility]
[2024-10-10] MEDS: BARIUM SULFATE (E-Z-HD 340GM);135ML BOTTLE 135 ML PO (08:45)
[2024-10-10] MEDS: BARIUM SULFATE(LIQUID E-Z-PAQUE);355ML BOTTLE 355 ML PO (08:45)
[2024-10-10] MEDS: E-Z-GASII EFFERVESCENT GRANULES;1PK 1 EACH PO (08:45)
== END 2024-10-10 23:59 | disposition home or self-care (01) ==
LOC: RAD 08:00
PROVIDERS: PCP Family Medicine; Visit Provider Family Medicine
DX: R13.10 Dysphagia, unspecified (principal)
CPT/HCPCS: 74220

== ENCOUNTER 2025-07-15 16:08 | Outpatient (CLI) | payer BC, SELFPAY ==
[2025-07-15 20:01] LABS: Hematocrit 41.9 % (37.0-47.0); Hemoglobin 13.5 g/dL (12.2-16.2); Immature Granulocytes % 0.3 %; Mean Corpuscular HGB Conc 32.2 g/dL (31.8-35.4); Mean Corpuscular Hemoglobin 27.6 pg (27.0-31.2); Mean Corpuscular Volume 85.7 fl (81-99); Nucleated Red Blood Cells % 0 %; Platelet Count 349 K/mm3 (142-424); Red Blood Count 4.89 M/mm3 (4.20-5.40); Red Cell Distribution Width-SD 46.9 fL; White Blood Count 9.6 K/mm3 (4.8-10.8)
[2025-07-15 21:14] LABS: Albumin Level 4.3 g/dl (3.5-5.0); Chloride 106 mmol/L (98-107)
[2025-07-15 21:15] LABS: Potassium 4.9 mmoL/L (3.5-5.1); Sodium 138 mmol/L (136-145)
[2025-07-15 21:17] LABS: Alanine Aminotransferase 19 U/L (12-78); Anion Gap 11.9 mEq/L (5-15); Aspartate Amino Transferase 23 U/L (14-36); Blood Urea Nitrogen 19 mg/dl (7-17); Carbon Dioxide 25 mmol/L (22.0-30.0); Creatinine,Serum 0.70 mg/dl (0.52-1.04); Estimated Glomerular Filt Rate 87 ml/min (>60); GFR (African American) 105 ML/MIN (>60)
[2025-07-15 21:18] LABS: Albumin/Globulin Ratio 1.5 (1.1-1.8); Alkaline Phosphatase 64 U/L (38-126); Bilirubin,Total 0.4 mg/dl (0.2-1.3); Calcium 9.8 mg/dl (8.4-10.2); Cholesterol 244 mg/dl (140-200); Globulin 2.9 g/dL (1.3-3.2); Glucose 85 mg/dl (74-100); HDL Cholesterol 61 mg/dl (40-60); Total Protein,Serum 7.2 g/dl (6.3-8.2); Triglycerides 174 mg/dl (30-150)
[2025-07-15 21:38] LABS: Free T4 (Free Thyroxine) 1.67 ng/dl (0.78-2.19)
[2025-07-15 21:49] LABS: Thyroid Stimulating Hormone 1.49 uIU/mL (0.465-4.68)
== END 2025-07-15 23:59 | disposition home or self-care (01) ==
LOC: LAB.DROPOF 07-16 10:51
PROVIDERS: PCP Family Medicine; Visit Provider Family Medicine
DX: E03.9 Hypothyroidism, unspecified (principal); K21.9 Gastro-esophageal reflux disease without esophagitis; E78.5 Hyperlipidemia, unspecified
CPT/HCPCS: 80053; 80061; 84439; 84443; 85025

== ENCOUNTER 2025-07-23 16:58 | Outpatient (CLI) | payer BC, SELFPAY ==
--- NOTE | 2025-07-23 16:59 | MM_ITS ---
PROCEDURE INFORMATION: Exam: MG Bilateral Screening 3D Mammography Exam date and time: 07/23/2025 5:06 PM Age: 55 years old Clinical indication: Screening examination TECHNIQUE: Imaging protocol: Bilateral Screening tomosynthesis and 2D mammography including computer-aided detection (CAD) when performed. COMPARISON: 1. MG [facility] SCRN MAMMO IMPL W/CAD BILAT - [facility] 10/27/2020 4:32 PM 2. MG [facility] SCRN MAMMO IMPL W/CAD BILAT - [facility] 04/02/2019 9:36 AM FINDINGS: MAMMOGRAPHY: Breast composition: There are scattered areas of fibroglandular density. Mass: No new or suspicious masses Architectural distortion: None. Calcifications: No suspicious calcifications. Asymmetric density: None. Skin thickening: None. Axillary adenopathy: None. Implants: Subpectoral silicone breast implants are present. The contours are smooth. IMPRESSION: No mammographic evidence of malignancy. Annual screening is recommended unless otherwise clinically indicated. ASSESSMENT: BI-RADS Category 1: Negative.
== END 2025-07-23 23:59 | disposition home or self-care (01) ==
LOC: RAD 16:59
PROVIDERS: PCP Family Medicine; Referring Provider Family Medicine; Visit Provider Family Medicine
DX: Z12.31 Encounter for screening mammogram for malignant neoplasm of breast (principal); R92.323 Mammographic fibroglandular density, bilateral breasts; Z98.82 Breast implant status
CPT/HCPCS: 77063; 77067